=== PATIENT | male | born 1985 | race Caucasian/White ===

== ENCOUNTER 2021-04-14 20:21 | Emergency (ER) | payer OTHER ==
[~2021-04-14] VITALS: Ht 177.8 cm; Wt 90.9 kg
[~2021-04-14 20:21] MED LIST: MULTIVITAMIN1 TA1 PO; NO HOME MEDICATIONS; NORCO 325 MG-7.1 TAB PO; SUDAFED30 MG PO
[2021-04-14 23:07] VITALS: BP 139/79; PULSE 87; TEMP 98.2
== END 2021-04-14 23:07 | disposition home or self-care (01) ==
LOC: COL.ER 20:21
DX: U07.1 COVID-19 (principal); F17.210 Nicotine dependence, cigarettes, uncomplicated